=== PATIENT | male | born 1975 | race Caucasian/White ===

== ENCOUNTER 2016-10-15 07:16 | Day surgery (SDC) | payer BC ==
[~2016-10-15] VITALS: Ht 160 cm; Wt 91.0 kg
[2016-10-15] VITALS (13 sets, daily range): BP systolic 128–150; BP diastolic 62–94; PULSE 64–76; RESP 13–18; Ht 160 cm; Wt 91.0 kg
--- NOTE | 2016-10-15 07:17 | HPN ---
Date/Time of Note Date/Time of Note DATE: 10/15/16 TIME: 07:16 Interval H&P Admission Note Pt. seen H&P reviewed: No system changes HEMA DEL CASTILLO MD Oct 15, 2016 07:16
[2016-10-15] MEDS ORDERED: FENTAnyl 50 MCG/ML VIAL ONE (09:02)
[2016-10-15] MEDS ORDERED: LIDOCAINE 1% (MDV) 20 ML INJ ONE (09:02)
[2016-10-15] MEDS ORDERED: PROPOFOL 20 ML ONE (09:02)
[2016-10-15] MEDS ORDERED: MIDAZOLAM 1 MG/ML 2 ML INJ ONE (09:02)
[2016-10-15] MEDS ORDERED: ROCURONIUM 50 MG INJ ONE (09:06)
[2016-10-15] MEDS ORDERED: BUPIVACAINE 0.25%/EPI (SDV) 30 ML INJ ONE (09:08)
[2016-10-15] MEDS ORDERED: EPHEDrine SULFATE 50 MG/5 ML SYG ONE (09:12)
[2016-10-15] MEDS ORDERED: ONDANSETRON 4 MG INJ ONE (09:14)
[2016-10-15] MEDS ORDERED: CEFAZOLIN 1 GM INJ ONE (09:14)
[2016-10-15] MEDS ORDERED: DEXAMETHASONE 4 MG/ML 1 ML INJ ONE (09:14)
[2016-10-15] MEDS ORDERED: ROPIVACAINE 0.2% 20 ML VIAL ONE (09:42)
[2016-10-15] MEDS ORDERED: DIPHENHYDRAMINE 50 MG INJ IV PRN (10:00)
[2016-10-15] MEDS ORDERED: FENTAnyl 50 MCG/ML VIAL IV PRN ×2 (10:00)
[2016-10-15] MEDS ORDERED: MEPERIDINE 25 MG INJ IV PRN (10:00)
[2016-10-15] MEDS ORDERED: HYDROmorphONE (0.2 MG/ML) 10ML SYG IV PRN ×2 (10:00)
[2016-10-15] MEDS ORDERED: ONDANSETRON 4 MG INJ IV PRN ×2 (10:00→10:30)
[2016-10-15] MEDS ORDERED: GLYCOPYRROLATE 1 MG INJ ONE (10:00)
[2016-10-15] MEDS ORDERED: NEOSTIGMINE 3 MG/3 ML SYRINGE ONE (10:00)
--- NOTE | 2016-10-15 10:08 | OPR ---
Date/Time of Note Date/Time of Note DATE: 10/15/16 TIME: 10:02 Operative Report Procedure Date: Oct 15, 2016 Preoperative Diagnosis Right inguinal hernia without obstruction Postoperative Diagnosis Right inguinal hernia without obstruction (direct) Operation Performed 1. Repair right inguinal hernia with extra large plug 2. Right ilioinguinal nerve block Surgeon: HEMA DEL CASTILLO MD Anesthesia: general Anesthesiologist: WALLY YOUSIF DO Estimated Blood Loss: minimal Specimens None Grafts/Implants None Tubes/Drains None Complications: None Pt Condition Post Procedure: stable Disposition: PACU Indications Symptomatic Operative\Procedure Findings After satisfactory general anesthesia was achieved, the lower abdomen and scrotum were prepped and draped. A 5 cm transverse suprapubic right groin incision was made and carried down to the level of the external oblique. This was opened in the direction of its fibers. Below was a very large hernia which was dissected free from cord structures. The cord was retracted and preserved. There was a large direct sac which was dissected to the floor of the canal and reduced. The reduction was maintained by placement of an extra-large plug secured circumferentially to healthy fascia with interrupted 3-0 Vicryl suture. Next the flat portion of the mesh was cut and fashioned to fit the floor of the canal. It was anchored at the pubic tubercle with 0 Novafil, laterally to inguinal ligament with interrupted 0 Novafil, and medially to conjoined tendon with interrupted 0 Novafil. The mesh distal to the cord was reconstituted with a single suture of 0 Novafil creating a new internal ring of appropriate size. The cord structures were then replaced beneath the external oblique which was closed with a running 3-0 Vicryl suture. Next the right inguinal nerve block was performed. 10 cc of 0.25% plain Marcaine were injected into the fascia 1 cm medial and inferior to the right anterior iliac spine. 10 more cc of local anesthetic were injected directly into the wound. Gabriela's fascia was closed with interrupted 3-0 Vicryl suture and skin closed with subcuticular absorbable ivet. Sponge and needle counts were reported as correct 2. HEMA DEL CASTILLO MD Oct 15, 2016 10:07
[2016-10-15] MEDS ORDERED: morphine 2 MG INJ IV PRN (10:30)
[2016-10-15] MEDS ORDERED: OXYCODONE/ACETAMINOPHEN (5/325) TAB PO PRN ×2 (10:30)
== END 2016-10-15 11:55 | disposition home or self-care (01) ==
LOC: SDS 07:16
PROVIDERS: ATTEND Surgery
DX: K40.90 Unilateral inguinal hernia, without obstruction or gangrene, not specified as recurrent (principal); E11.9 Type 2 diabetes mellitus without complications
CPT/HCPCS: 49505; C1781; J0690; J1100; J2250; J2405; J2710; J3010; Z7512; Z7610; J2795